=== PATIENT | female | born 1985 | race Caucasian/White ===

== ENCOUNTER 2022-08-01 00:22 | Emergency (ER) | payer SELFPAY ==
[~2022-08-01] VITALS: Ht 162.6 cm; Wt 74.8 kg
[2022-08-01 00:41] VITALS: BP 132/76
--- NOTE | 2022-08-01 00:52 | NUR ---
TO LOBBY VIA W/C
--- NOTE | 2022-08-01 02:18 | NUR ---
Dr. Alaniz examining patient.
[2022-08-01 02:40] VITALS: BP 127/76
--- NOTE | 2022-08-01 02:40 | NUR ---
Patient discharged with v/s stable. Written and verbal after care instructions given and explained. Patient verbalized understanding. Ambulatory with steady gait. All questions addressed prior to discharge. Advised to follow up with PMD.
== END 2022-08-01 02:40 | disposition home or self-care (01) ==
LOC: MED 00:22
DX: G47.10 Hypersomnia, unspecified (principal); Z59.00 Homelessness unspecified; R10.9 Unspecified abdominal pain
CPT/HCPCS: 99281